=== PATIENT | female | born 1965 | race Two or more races ===

== ENCOUNTER → 2016-11-22 | Outpatient (CLI) | payer OTHER ==
[~2016-11-22] MED LIST: BACTRIM DS TABL1 TAB PO; DEPRESSION MED; DESYREL50 MG PO; FLEXERIL10 MG PO; IBUPROFEN800 MG PO; KEFLEX500 MG PO; LEVOTHYROXINE25 MC1 PO; LISINOPRIL10 MG PO; LORAZEPAM1 MG PO; NABUMETONE500 MG PO; NO MEDICATIONS; NORCO1 TAB 10/3 PO; NORVASC2.5 MG PO; OMEPRAZOLE20 M1 PO; PAIN MED; SLEEP MED; SYMBICORT INH; TOPROL XL50 MG PO; VICODIN 5/500 T1 TAB PO; VOLTAREN75 MG PO
== END | disposition home or self-care (01) ==
LOC: CECH 10:19
DX: R06.00 Dyspnea, unspecified (principal)
CPT/HCPCS: 93306

== ENCOUNTER → 2016-12-12 | Outpatient (CLI) | payer OTHER ==
--- NOTE | ~2016-12-12 | CT3 ---
[facility] A Service of [facility] & [facility] / [facility] RADIOLOGY TEXT RESULTS PATIENT: JACQUES ROBERT LOCATION: [facility] : 69 UNIT #: [id number] AGE: [address]: Eyal Patel MD SEX: F ORDER DR: [id number] [facility] [address] [place], [place] [address] [id number] O MR#: [id number] Acc #: [id number] NAME: JACQUES ROBERT : 1965 SEX: F STUDY DATE/TIME: 12/12/2016 13:15 UNIT: [facility] ROOM: STUDY DESCRIPTION: CT Abd and Pelv WWo Cont Attending Physician: Eyal Patel M.D. Referring Physician: Eyal Patel M.D. Ordering Physician: Eyal Patel M.D. Primary Care Physician: Patrizia Lion M.D. MEDICAL IMAGING REPORT This report is preliminary unless electronic signature is present EXAM CT abdomen and pelvis without and with contrast 12/12/2016 HISTORY 51-year-old female with microscopic hematuria for 1 month. Lower back pain for 1 year. Hypertension. Previous hysterectomy. COMPARISON CT abdomen without contrast 04/05/2008. MRI pelvis without and with contrast 10/03/2015. PROCEDURE Precontrast and postcontrast imaging was obtained through the abdomen and pelvis. Dynamic postcontrast imaging was obtained through the abdomen with attention to the kidneys. Sagittal and coronal reformatted images were obtained. Delayed excretory phase imaging was acquired through the abdomen and pelvis. This CT examination was performed with one or more of the following radiation dose reduction techniques: automatic exposure control, adjustment of mA and/or kV according to patient size, and iterative reconstruction. FINDINGS ABDOMEN: On noncontrast imaging, there is no renal or ureteral calculus. On postcontrast imaging, there is normal symmetric enhancement of both kidneys. No cystic or solid renal mass is evident. No perinephric inflammatory changes are identified. On the delayed excretory phase imaging, no suspicious filling defects are seen within the renal collecting systems or ureters. Urinary bladder is decompressed but appears unremarkable. Cholecystectomy. The liver, pancreas, spleen, adrenals are within normal STS. [facility] A Service of [facility] & [facility] / [facility] RADIOLOGY TEXT RESULTS PATIENT: JACQUES ROBERT LOCATION: [facility] : [birth year] UNIT #: [id number] AGE: [address]: Eyal Patel MD SEX: F ORDER DR: colin. Lung bases are free of consolidation. The unopacified bowel appears nonthickened and noninflamed. The appendix is normal. PELVIS: Probable tiny uterine fundal fibroid measuring 6 mm noted. No pelvic free fluid. Rectum normal. No acute osseous abnormalities are identified. IMPRESSION Normal CT abdomen and pelvis without and with contrast. Normal appearance of the kidneys, ureters and urinary bladder. No CT explanation for the patient's microscopic hematuria. Dictated by... Zulma Meehan M.D. THIS IS AN ELECTRONICALLY VERIFIED REPORT Zulma Meehan M.D. at 12/14/2016 6:12 AM ANTONI/pete TD: 12/13/2016 09:48 JOB #: [id number] MEDICAL IMAGING REPORT Page 1 of 1 COPY
[2016-12-12 18:25] LABS: POC - CREATININE 0.69 mg/dL (0.44-1.03); POC - GFR >60.0 mL/min (>60)
== END | disposition home or self-care (01) ==
LOC: CCAT 12:15
PROVIDERS: Urology
DX: R31.9 Hematuria, unspecified (principal); I10 Essential (primary) hypertension; Z90.710 Acquired absence of both cervix and uterus
CPT/HCPCS: 74178; 82565; Q9967

== ENCOUNTER 2017-01-31 17:53 | Emergency (ER) | payer OTHER ==
[~2017-01-31] VITALS: Ht 177.8 cm; Wt 80.3 kg
--- NOTE | ~2017-01-31 | EKG ---
PATIENT: JACQUES ROBERT UNIT #: [id number] Ventricular Rate: 54 BPM Atrial Rate: 54 BPM P-R Interval: 126 ms QRS Duration: 84 ms Q-T Interval: 436 ms QTC Calculation(Bezet): 413 ms P Eliot: 5 degrees Calculated R Eliot: 29 degrees Calculated T Eliot: 32 degrees Diagnosis Line: Sinus bradycardia Diagnosis Line: Otherwise normal ECG Diagnosis Line: When compared with ECG of 28-OCT-2014 21:37, Diagnosis Line: No significant change was found Diagnosis Line: Confirmed by JOSE RODRIGUEZ MD ([id number]) on 02/02/2017 Diagnosis Line: 8:23:46 AM INTERPRETING MD: MICHAEL AVENDAÑO
--- NOTE | ~2017-01-31 | CR72 ---
[facility] A Service of [facility] RADIOLOGY TEXT RESULTS PATIENT: JACQUES ROBERT LOCATION: [facility] : [birth year] UNIT #: [id number] AGE: [address]: Mode Peña MD SEX: F ORDER DR: [id number] [facility] [address] [place], [place] [address] [id number] E MR#: [id number] Acc #: [id number] NAME: JACQUES ROBERT : 1965 SEX: F STUDY DATE/TIME: 01/31/2017 18:05 UNIT: [facility] ROOM: STUDY DESCRIPTION: CR Chest Single View Portable Attending Physician: Mode Peña M.D. Ordering Physician: Ed Aidan Mcneal M.D. Primary Care Physician: Patrizia Lion M.D. MEDICAL IMAGING REPORT This report is preliminary unless electronic signature is present EXAM Portable chest. HISTORY Chest pain for 3 days. FINDINGS Cardiac size and pulmonary vascularity are within normal limits allowing for relatively shallow inspiration. Mild right lower thoracic curve. No airspace infiltrates or effusions. Surgical clips in the right upper quadrant. IMPRESSION No acute findings. Dictated by... Teddy Piedra M.D. THIS IS AN ELECTRONICALLY VERIFIED REPORT Teddy Piedra M.D. at 02/01/2017 10:08 PM BRUCE/keira TD: 01/31/2017 22:54 JOB #: [id number] MEDICAL IMAGING REPORT Page 1 of 1 COPY
[2017-01-31 19:49] LABS: POC - CKMB 1.1 ng/mL (0.0-7.9); POC - TROPONIN <0.05 ng/mL (<=0.05)
[2017-01-31 20:14] LABS: BASOPHIL% 0.7 % (0-2.5); DIFF IND NO; EOSINOPHIL# 0.2 X10e3 (0-0.7); EOSINOPHIL% 4.1 % (0.0-7.0); HEMATOCRIT 37.8 % (35.0-45.0); HEMOGLOBIN 12.1 gm/dL (12.0-16.0); LYMPHOCYTE% 39.6 % (17.0-45.0); MEAN CELL VOLUME 80.6 FL (83-96); MEAN CORPUSCULAR HEMOGLOBIN 25.9 PG (28-34); MEAN CORPUSCULAR HGB CONC 32.1 g/dL (30-36); MEAN PLATELET VOLUME 8.3 FL (6.5-11.5); MONOCYTE# 0.4 X10e3 (0-1.0); MONOCYTE% 7.3 % (3.0-12.0); NEUTROPHIL# 2.4 X10e3 (1.5-7.1); NEUTROPHIL% 48.3 % (40-75); PLATELET COUNT 234 X10e3 (140-420); RED BLOOD COUNT 4.69 X10e (3.90-5.30); RED CELL DISTRIBUTION WIDTH 14.2 % (11.0-15.5)
[2017-01-31 20:27] LABS: PARTIAL THROMBOPLASTIN TIME 30.6 SECONDS (23.5-31.3); PROTHROMBIN TIME (PATIENT) 11.3 SECONDS (10.0-11.7)
[2017-01-31 20:38] LABS: ALBUMIN SERUM 4.4 g/dL (3.5-5.0); BILIRUBIN, DIRECT 0.1 mg/dL (0.0-0.2); BILIRUBIN,INDIRECT 0.8 mg/dL (0.0-0.9); BILIRUBIN,TOTAL 0.9 mg/dL (0.2-2.0); BUN/CREATININE RATIO 14.28; CREATININE SERUM 0.7 mg/dL (0.6-1.4); GLOM FILT RATE Estimated 101.7 mL/min (>60); POTASSIUM 3.8 mmol/L (3.5-5.1); PROTEIN TOTAL SERUM 7.1 g/dL (6.0-8.3)
[2017-01-31 21:50] LABS: POC - CKMB <1.0 ng/mL (0.0-7.9); POC - TROPONIN <0.05 ng/mL (<=0.05)
== END 2017-01-31 22:00 | disposition home or self-care (01) ==
LOC: CED 17:53
PROVIDERS: Emergency Medicine
DX: R07.89 Other chest pain (principal); M54.12 Radiculopathy, cervical region; I10 Essential (primary) hypertension; K75.9 Inflammatory liver disease, unspecified; Z90.49 Acquired absence of other specified parts of digestive tract; Z90.710 Acquired absence of both cervix and uterus
CPT/HCPCS: 36415; 71010; 80048; 80076; 82553; 84484; 85025; 85610; 85730; 93005; 99285